=== PATIENT | male | born 1985 | race Caucasian/White ===

== ENCOUNTER 2018-05-27 09:07 | Emergency (ER) | payer MEDICAID ==
[2018-05-27 09:13] VITALS: BP 119/73
--- NOTE | 2018-05-27 09:57 | EDPHY ---
H & P Time Seen by Provider: 05/27/18 09:15 HPI/ROS: CHIEF COMPLAINT: Back pain HISTORY OF PRESENT ILLNESS: 33-year-old male presents to the emergency department with low back pain. He states that it has been present for last 3 weeks. He denies any known trauma or injury although he works doing very physical labor. He also mountain bike frequently and has been cooper diving. The patient has pain in his lower back which is worse with movement. He denies radiation of pain down his legs. Denies abdominal pain. Denies bowel or bladder incontinence. Denies paresthesias or feelings of weakness in his lower extremities. He has not taken anything for the pain and has not had any follow- up with a primary care provider. He denies pain in his chest or difficulty breathing. REVIEW OF SYSTEMS: Constitutional: No fever, no chills. Eyes: No double or blurry vision. ENT: No sore throat. Respiratory: No cough, no shortness of breath. Cardiac: No chest pain. Gastrointestinal: No abdominal pain, vomiting or diarrhea. Genitourinary: No dysuria. Musculoskeletal: Low back pain. No neck pain. Skin: No rashes. Neurological: No headache. Past Medical/Surgical History: Negative Social History: Single, works as a welder plastic Smoking Status: Current some day smoker Physical Exam: General Appearance: Alert, no distress. Eyes: Pupils equal and round. Extraocular motions are all intact. ENT: Mouth: Mucous membranes moist. Respiratory: No wheezing, rhonchi, or rales, lungs are clear to auscultation. Cardiovascular: Regular rate and rhythm. Gastrointestinal: Abdomen is soft and nontender, no masses, no rebound or guarding, bowel sounds normal. Neurological: Alert and oriented x 3, cranial nerves II through XII grossly intact Skin: Warm and dry, no rashes. Musculoskeletal: Nontender to palpate along the cervical, thoracic or lumbar spine. Neck is supple. Straight leg raise is negative bilaterally. Reflexes are 2+ and equal for lower extremities bilaterally. Pain is made worse bilaterally bending to his left and right as well as twisting his upper body. He has normal gait. He is able to do a deep knee bend or squat without any difficulty. Extremities: Full range of motion and no peripheral edema. Psychiatric: Patient is oriented X 3, there is no agitation. Constitutional: Initial Vital Signs Temperature (C) 37.0 C 05/27/18 09:10 Heart Rate 65 05/27/18 09:10 Respiratory Rate 18 05/27/18 09:10 Blood Pressure 119/73 05/27/18 09:10 O2 Sat (%) 97 05/27/18 09:10 O2 Delivery Mode Room Air Allergies/Adverse Reactions: No Known Allergies Allergy (Verified 05/27/18 09:09) Home Medications: Medication Instructions Recorded Cyclobenzaprine [Flexeril] 10 mg PO TIDPRN PRN #12 tab 05/27/18 methylPREDNISolone [Medrol Dose 1 each PO AD #1 ea 05/27/18 Aba] Medical Decision Making ED Course/Re-evaluation: 33-year-old male presents to the emergency department complaining of low back pain. The patient's pain is likely musculoskeletal in nature given that it is worse with certain movements especially laterally bending to the left and right and especially when he tries to bend forward and touch his toes. His reflexes are symmetrical. He has no weakness. No focal neurologic findings. I encouraged anti-inflammatories, he was goes so given a prescription for Medrol Dosepak as well as muscle relaxers to use only at nighttime to help him sleep. I do not think MRI is indicated in the emergency department. He has no focal neurologic findings. The patient reports no reported trauma. He has no pain with palpation along the cervical, thoracic or lumbar spine. I do not think x- rays are helpful. Patient was given primary care referral as well as neurosurgical referral and told to return if his symptoms changed or worsened or if he felt weakness or numbness or tingling in his lower extremities. Differential Diagnosis: Back pain including but not limited to muscular pain, herniated disc, spine fracture, intra-abdominal causes and urinary tract infection. Departure - Departure Disposition: Home, Routine, Self-Care Clinical Impression: Low back pain Qualifiers: Chronicity: acute Back pain laterality: bilateral Sciatica presence: without sciatica Qualified Code(s): M54.5 - Low back pain Condition: Good Instructions: Low Back Strain (ED), Acute Low Back Pain (ED) Additional Instructions: Ibuprofen 600 mg every 8 hr as needed for pain. Medrol Dosepak as directed for 1 week. Flexeril as needed for muscular spasm to help you sleep at night. Activity as tolerated. Follow up with primary care provider as well as neurosurgeon that has been provided for you. Return to the emergency department if you developed radiating pain down your legs, feelings of weakness in your lower extremities, increasing pain, or if you feel worse in any way. Referrals: Phu Blanco MD [Medical Doctor] - 5-7 days, call for appt. (Neurosurgeon on- call) Tracy Sanders MD [Medical Doctor] - 5-7 days, call for appt. (Primary care provider button buttonhole marker) Prescriptions: Cyclobenzaprine [Flexeril] 10 mg PO TIDPRN PRN #12 tab PRN Reason: P.r.n. Spasms methylPREDNISolone [Medrol Dose Aba] 1 each PO AD #1 ea
== END 2018-05-27 10:06 | disposition home or self-care (01) ==
DX: M54.5 Low back pain (principal); F17.200 Nicotine dependence, unspecified, uncomplicated

== ENCOUNTER 2019-02-27 11:58 | Emergency (ER) | payer MEDICAID ==
[2019-02-27 12:05] VITALS: BP 116/62
--- NOTE | 2019-02-27 12:19 | EDPHY ---
H & P Stated Complaint: rock climbing last night, no injury but now feels like knife in R shoulder Time Seen by Provider: 02/27/19 12:35 HPI/ROS: HPI: This is a 33-year-old male who presents with Chief Complaint: rock climbing last night, no injury but now feels like knife in R shoulder Location: Right side of neck, right trapezius muscle Quality: Pain Duration: 3-5 hours Signs and Symptoms: No bleeding, no radiation, no numbness, no weakness, no tingling, no incontinence, no decreased range of motion, no swelling, + pain, no fever Timing: Gradual onset Severity: Moderate to severe Context: Patient is right-hand dominant, presents with complaints of right side of his neck, right trapezius muscle strain and pain. He reports that he was participating in in the rock climbing and started to developed pain while he was climbing in 1 particular area. He reports that he is actively having spasms but no radiation of pain. He reports that he has no concern of rotator cuff involvement and denies weakness, paresthesias, radiculopathy, decreased range of motion. Patient is requesting muscle relaxers and prescription for ibuprofen 100 mg. Patient reports that there is no indication for imaging at this time. Modifying Factors: Massage with no relief Comment: ROS: A comprehensive 10 system review of systems is otherwise negative aside from elements mentioned in the history of present illness. MEDICAL/SURGICAL/SOCIAL HISTORY: Medical history: Generally healthy. Does not take any regular medications. Surgical history: Denies Social history: Never smoked. Employed. CONSTITUTIONAL: Well-developed, well-nourished, physically fit adult white male , awake and alert, no obvious distress HEENT: Atraumatic and normocephalic, PERRL, EOMI. Nares patent; no rhinorrhea; no nasal mucosal edema. Tympanic membranes clear. Oropharynx clear, no exudate and moist pink mucosa. Airway patent. No lymphadenopathy. NECK: supple, reproducible tenderness on the right cervical paraspinous muscle/ right levator scapula muscle with prominent spasm; no midline tenderness, flexion 45 degrees, extension 45 degrees, right and left lateral flexion 45 degrees. No meningismus. Cardiovascular: Normal S1/S2, regular rate, regular rhythm, without murmur rub or gallop. PULMONARY/CHEST: Symmetrical and nontender. Clear to auscultation bilaterally. Good air movement. No accessory muscle usage. ABDOMEN: Soft, nondistended, nontender, no rebound, no guarding, no peritoneal signs, no masses or organomegaly. No CVAT. EXTREMITIES: 2/2 pulses, strength 5/5, right SHOULDER: Arc test abduction to 180, abduction to 45, horizontal flexion 130, horizontal extension to 45, deltoid strength 5/5. No pain with Neer test/Thompson test (impingement). No Tenderness to palpation over AC joint. no deformities, no clubbing, no cyanosis or edema. NEUROLOGICAL: no focal neuro deficits. GCS 15. SKIN: Warm and dry, no erythema. no rash. Good capillary refill. Source: Patient Exam Limitations: No limitations - Personal History Current Tetanus/Diphtheria Vaccine: Yes Current Tetanus Diphtheria and Acellular Pertussis (TDAP): Yes - Medical/Surgical History Hx Asthma: No Hx Chronic Respiratory Disease: No Hx Diabetes: No Hx Cardiac Disease: No Hx Renal Disease: No Hx Cirrhosis: No Hx Alcoholism: No Hx HIV/AIDS: No Hx Splenectomy or Spleen Trauma: No Other PMH: denies - Social History Smoking Status: Never smoked Constitutional: Initial Vital Signs Temperature (C) 37.0 C 02/27/19 12:01 Heart Rate 70 02/27/19 12:01 Respiratory Rate 16 02/27/19 12:01 Blood Pressure 116/62 02/27/19 12:01 O2 Sat (%) 96 02/27/19 12:01 O2 Delivery Mode Room Air Allergies/Adverse Reactions: No Known Allergies Allergy (Verified 02/27/19 12:03) Home Medications: Medication Instructions Recorded Ibuprofen [Ibu] 800 mg PO Q8 PRN #12 tablet 02/27/19 Metaxalone [Skelaxin 800 mg (*)] 800 mg PO Q8 PRN #12 tab 02/27/19 Medical Decision Making ED Course/Re-evaluation: Vital signs reviewed and stable upon arrival. No imaging performed as patient politely declined. I believe this is muscle related and feel that no x-ray imaging is appropriate. Patient given a prescription for ibuprofen 100 mg and Skelaxin No signs of impingement syndrome, rotator cuff injury, cervical radiculopathy. No signs of neurovascular compromise/tenting of skin/compartment syndrome/ extremities and joints examined above and below area of concern and are neurovascularly intact. This patient was seen under the supervision of my secondary supervising physician. I evaluated care for this patient with attending. Differential Diagnosis: Shoulder injury differential diagnosis includes but is not limited to clavicle fracture, contusion, AC joint separation, rotator cuff injury, labral tear, humeral head fracture, sprain, scapula fracture. Departure - Departure Disposition: Home, Routine, Self-Care Clinical Impression: Cervical muscle strain Qualifiers: Encounter type: initial encounter Qualified Code(s): S16.1XXA - Strain of muscle, fascia and tendon at neck level, initial encounter Strain of right levator scapulae muscle Qualifiers: Encounter type: initial encounter Qualified Code(s): S46.811A - Strain of other muscles, fascia and tendons at shoulder and upper arm level, right arm, initial encounter Condition: Good Instructions: Cervical Strain (ED), Muscle Strain (ED) Additional Instructions: Take Tylenol 650 mg every 4 hours and/or Ibuprofen 800 mg every 8 hours with food as needed for pain. Use Skelaxin every 8 hours as needed for muscle spasm. Apply moist heat for 30 minutes at a time; 2-3 times per day for the next 1-2 days. Follow up with Orthopedics in 5-7 days if symptoms persist at which time they will evaluate and recommend with you if conservative management versus surgery is indicated. Referrals: Curly Pratt MD [Medical Doctor] - As per Instructions Prescriptions: Ibuprofen [Ibu] 800 mg PO Q8 PRN #12 tablet PRN Reason: Pain, Moderate Metaxalone [Skelaxin 800 mg (*)] 800 mg PO Q8 PRN #12 tab PRN Reason: Spasms
== END 2019-02-27 12:27 | disposition home or self-care (01) ==
DX: S16.1XXA Strain of muscle, fascia and tendon at neck level, initial encounter (principal); S46.811A Strain of other muscles, fascia and tendons at shoulder and upper arm level, right arm, initial encounter; X50.9XXA Other and unspecified overexertion or strenuous movements or postures, initial encounter; Y93.31 Activity, mountain climbing, rock climbing and wall climbing

== ENCOUNTER 2019-04-12 11:01 | Emergency (ER) | payer MEDICAID ==
--- NOTE | 2019-04-12 11:50 | EDPHY ---
General Time Seen by Provider: 04/12/19 11:47 Narrative: CLINICAL IMPRESSION: Right hand pain, probable overuse injury, contusion. ASSESSMENT/PLAN: Patient is a 33-year-old male with no significant medical history who presents with complaint of right hand pain that has been ongoing and intermittent for the last 3-4 months. Patient is nontoxic-appearing, he is in no acute distress on arrival. Hand x-ray reveals no acute bony abnormality. There was no evidence of acute fracture, dislocation, compartment syndrome, upper extremity DVT, cellulitis, septic arthritis or neurovascular compromise. His history and physical examination is most consistent with right hand pain possibly secondary to overuse injury and acute contusion. The patient was placed in a Velcro wrist splint for comfort. CMS intact post splint placement. A referral was provided for both PCP and ortho, he will call next week to schedule follow-up. Recommended anti-inflammatories in the meantime. Return precautions discussed. ED PROCEDURES: Procedure: Splint placement. A Velcro wrist splint was applied. After application of the splint I returned and re-examined the patient. The splint was adequately immobilizing the joint and distal to the splint the patient's circulation and sensation was intact. CHIEF COMPLAINT: Right hand pain HPI: Patient is a 33-year-old male with no significant medical history who presents to the emergency department with right hand pain that has been ongoing and worsening over the last several months. 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 Patient reports several months ago he started to experience some pain along the palmar aspect of the lateral hand. It has waxed and waned in intensity. On Friday he accidentally hit it against a fence post and had significantly worsening pain. He has not taken anything for pain. He has not been evaluated prior to this visit. He denies any previous injury or surgery to this hand. He denies any numbness or tingling of the extremity. Denies any open wounds. ROS: Otherwise negative, please see HPI. PHYSICAL EXAM: General Appearance: Well-developed, well-appearing and in no acute distress. Respiratory: There are no retractions, lungs are clear to auscultation. Skin: Warm, dry, no rashes. Neuro: Alert and oriented x3, Cranial nerves 2-12 grossly intact. No focal deficit. Psych: Normal mood, normal affect. No agitation. Upper Extremities: Patient has tenderness to palpation along the palmar aspect of his right 5th and 4th metacarpals. There is no bony deformity, edema or ecchymosis. Patient has no MCP tenderness, no tenderness at the anatomical snuffbox. He has no tenderness of the wrist, negative Phalen's and Tinel's. The radial, ulnar and median nerves were all tested. Radial nerve: Patient is able to extend wrist and fingers of the local joints. Ulnar nerve: Patient is able to abduct all fingers. Median nerve patient is able to oppose thumb to pinky. 2+ radial pulse. Right upper extremity is otherwise unremarkable. Left upper extremity is unremarkable- Intact distal pulses, Full range of motion intact, no tenderness, no ecchymosis or edema Lower Extremities: Intact distal pulses, No edema, No tenderness, No cyanosis, full range of motion intact, No calf tenderness bilaterally. MEDICAL DECISION MAKING: Patient was seen independently. Secondary supervising physician at time of evaluation was Dr. Taveras, he did not evaluate this patient. Diagnosis: Right hand pain. Summary: See Assessment and Plan for summary of ED visit Clinical lab tests: Not applicable. Independent visualization of images, tracing, or specimens: Yes. Decision to obtain medical records or history from someone other than the patient: No Review / Summarize previous medical records: Yes Patient Progress: Stable, discharge. - History Smoking Status: Never smoked - Objective Vital Signs: Initial Vital Signs Temperature (C) 36.8 C 04/12/19 11:03 Heart Rate 65 04/12/19 11:03 Respiratory Rate 16 04/12/19 11:03 Blood Pressure 122/65 H 04/12/19 11:03 O2 Sat (%) 97 04/12/19 11:03 O2 Delivery Mode Room Air Allergies/Adverse Reactions: No Known Allergies Allergy (Verified 04/12/19 11:05) Home Medications: Medication Instructions Recorded Ibuprofen [Ibu] 800 mg PO Q8 PRN #12 tablet 02/27/19 Metaxalone [Skelaxin 800 mg (*)] 800 mg PO Q8 PRN #12 tab 02/27/19 Departure - Departure Disposition: Home, Routine, Self-Care Clinical Impression: Hand pain, right Condition: Good Instructions: Arthralgia (ED) Additional Instructions: DISCHARGE INSTRUCTIONS FROM YOUR PROVIDER Thank you for visiting our emergency department today. Please keep in mind that discharge from the emergency department does not mean that there is nothing wrong - it simply means that we have not identified an emergency condition that requires further evaluation or treatment in the hospital. You should always plan to follow up with primary care for re-evaluation of your condition in the next 2-3 days. Please call to establish care with a primary care provider. If you have been referred to a specialist, please call as soon as possible ( today or tomorrow) to schedule your follow up appointment at the appropriate time. You have been given a referral to Dr. Bobby, please call tomorrow to schedule an appointment for follow-up. Rest, ice (on and off), elevate the wrist and hand as possible above the level of the heart to decrease pain and swelling. Wear the splint as applied for comfort. For pain control: You may take Tylenol, I recommend 500-1000 mg every 6-8 hours as needed. Take with food and a full glass of water. Stop taking if this is upsetting you stomach. Do not exceed 4000 mg in a 24 hr period. You may also take ibuprofen, recommend 400 mg every 6 hr. Take with food and a full glass of water. Stop taking if this upsets your stomach. Do not exceed 2400 mg in a 24 hr period. Continue your regular medications as prescribed. Return for increased pain or swelling, numbness, tingling or weakness of the fingers, discoloration of the fingers, fever,inability to move your fingers or any other new, worsening or worrisome symptoms. People present with illnesses and injuries in different ways, and it is always possible that we have missed something. Again, thank you for choosing our emergency department. We hope that you feel better. Referrals: Christen Mccloud MD [Medical Doctor] - 2-3 days, call for appt. (Please establish care with a primary care provider) Henry Bobby MD [Medical Doctor] - 2-3 days, call for appt.
[2019-04-12 12:16] VITALS: BP 122/69
== END 2019-04-12 12:13 | disposition home or self-care (01) ==
DX: M79.641 Pain in right hand (principal)
CPT/HCPCS: L3984